=== PATIENT | male | born 1950 | race Hispanic/Latino ===

== ENCOUNTER → 2019-12-18 | Day surgery (SDC) | payer MEDICARE ==
[~2019-12-18] MED LIST: AMLODIPINE BESY10 MG PO; FENTANYL CITRATE/PF 100MCG/2 ML INJ ONE; IBUPROFEN200 MG PO; LOSARTAN POTASS25 MG; MIDAZOLAM HCL 2 MG/2 ML VIAL ONE; NOVOLIN; OMEPRAZOLE40 MG; PROPOFOL IV EMULSION 10 MG/ML 20 ML VIAL ONE
[2019-12-18 07:46] LABS: BASOPHILS # (AUTO) 0.1 (0.0-0.1); BASOPHILS % 0.6 % (0.0-1.0); EOSINOPHILS # (AUTO) 0.3 (0.0-0.4); EOSINOPHILS % 2.3 % (0.0-6.0); HEMATOCRIT 42.4 % (38.2-49.6); LYMPHOCYTES # (AUTO) 3.5 (1.0-3.2); LYMPHOCYTES % 26.3 % (18.0-39.1); MEAN CORPUSCULAR HEMOGLOBIN 29.7 pg (28-32); MEAN CORPUSCULAR HGB CONC 35.4 g/dL (31-35); MONOCYTES # (AUTO) 0.9 (0.2-0.8); MONOCYTES % 6.5 % (4.4-11.3); NEUTROPHILS # (AUTO) 8.5 (2.1-6.9); NEUTROPHILS % 63.4 % (38.7-80.0); PLATELET COUNT 390 x10e3/uL (140-360); RED BLOOD COUNT 5.05 x10e6/uL (4.3-5.7)
[2019-12-18 10:45] VITALS: BP 141/89
== END | disposition home or self-care (01) ==
LOC: OR 06:50
PROVIDERS: ATTEND Internal Medicine Gastroenterology
DX: Z12.11 Encounter for screening for malignant neoplasm of colon (principal); D12.3 Benign neoplasm of transverse colon; D12.4 Benign neoplasm of descending colon; D12.5 Benign neoplasm of sigmoid colon; K29.70 Gastritis, unspecified, without bleeding; K29.80 Duodenitis without bleeding; K57.30 Diverticulosis of large intestine without perforation or abscess without bleeding; K64.8 Other hemorrhoids; K44.9 Diaphragmatic hernia without obstruction or gangrene; E11.9 Type 2 diabetes mellitus without complications; I10 Essential (primary) hypertension; R06.02 Shortness of breath; M19.90 Unspecified osteoarthritis, unspecified site; Z01.810 Encounter for preprocedural cardiovascular examination; Z01.812 Encounter for preprocedural laboratory examination; Z11.59 Encounter for screening for other viral diseases; Z79.4 Long term (current) use of insulin; Z86.73 Personal history of transient ischemic attack (TIA), and cerebral infarction without residual deficits
CPT/HCPCS: 36415; 43239; 45380; 45385; 82948; 85025; 93005; J2250; J2704; J3010; U0002; 45378; 45384

== ENCOUNTER 2019-12-25 10:38 | Emergency (ER) | payer MEDICARE ==
[~2019-12-25] VITALS: Ht 162.6 cm; Wt 77.1 kg
[~2019-12-25 10:38] MED LIST changes: -FENTANYL CITRATE/PF 100MCG/2 ML INJ ONE; -MIDAZOLAM HCL 2 MG/2 ML VIAL ONE; -PROPOFOL IV EMULSION 10 MG/ML 20 ML VIAL ONE
--- NOTE | 2019-12-25 10:45 | Emergency Department Note ---
History of Present Illnes History of Present Illness History of Present Illness This is a 69 year old male . Historian: Patient, Family Member Arrival Mode: Car History limited by: language barrier Onset (how long ago): week(s) Past Medical/Family History Physician Review I have reviewed the patient's past medical and family history. Any updates have been documented here. Review of Systems Review of Systems Cardiovascular: Reports chest pain Respiratory: Reports dyspnea Physical Exam Related Data Allergies: Coded Allergies: No Known Allergies (Unverified , 12/12/19) Physical Exam CONSTITUTIONAL HENT EYES NECK PULMONARY Pulmonary: Present respiratory distress CARDIOVASCULAR Cardiovascular: Present heart sounds normal, Present tachycardia GASTROINTESTINAL GENITOURINARY SKIN MUSCULOSKELETAL NEUROLOGICAL PSYCHOLOGICAL Procedures 12 Lead ECG Interpretation ECG Interpretation : ECG: ECG 1 Creative Writer: Interpreted by ED physician Prior ECG tracings: reviewed Rhythm: sinus tachycardia Rate: tachycardia BPM: 107 QRS axis: normal ST segments normal: Yes T waves normal: Yes Clinical Impression: non-specific ECG Assessment & Plan Medical Decision Making MDM Diff Dx : lung ca, sepsis, CHF, pneuomia, pericardial effusion, PE Assessment & Plan Final Impression: (1) Pericardial effusion Home Meds Reported Medications [Novolin] 70,/30 No Conflict Check 12/13/19 Omeprazole (OMEPRAZOLE) 40 Mg Capsule.dr, DAILY 12/13/19 Amlodipine Besylate (AMLODIPINE BESYLATE) 10 Mg Tablet, 10 MG PO DAILY, #30 TAB 12/12/19 Losartan Potassium (LOSARTAN POTASSIUM) 25 Mg Tablet 12/12/19 Ibuprofen (IBUPROFEN) 200 Mg Capsule, 800 MG PO PRN for PRN, TAB 12/12/19 ALFA LIGHT DO Dec 25, 2019 10:45
[2019-12-25] MEDS ORDERED: ALBUTEROL/IPRATROPIUM 3 ML NEB NEB STA (10:58)
[2019-12-25 11:00] LABS: BASOPHILS % 0.4 % (0.0-1.0); EOSINOPHILS # (AUTO) 0.1 (0.0-0.4); EOSINOPHILS % 0.8 % (0.0-6.0); HEMATOCRIT 30.3 % (38.2-49.6); HEMOGLOBIN 10.7 g/dL (14.0-18.0); LYMPHOCYTES % 19.5 % (18.0-39.1); MEAN CORPUSCULAR HEMOGLOBIN 29.6 pg (28-32); MEAN CORPUSCULAR HGB CONC 35.3 g/dL (31-35); MEAN CORPUSCULAR VOLUME 83.7 fL (81-99); MONOCYTES % 10.2 % (4.4-11.3); NEUTROPHILS # (AUTO) 6.8 (2.1-6.9); NEUTROPHILS % 67.6 % (38.7-80.0); PLATELET COUNT 312 x10e3/uL (140-360); RED BLOOD COUNT 3.62 x10e6/uL (4.3-5.7); RED CELL DISTRIBUTION WIDTH 14.6 % (11.7-14.4)
--- NOTE | 2019-12-25 11:10 | NUR ---
Chest x-ray performed in room.
[2019-12-25 11:13] LABS: INR 1.09; PROTHROMBIN TIME 14.7 seconds (11.9-14.5)
--- NOTE | 2019-12-25 11:17 | Diagnostic Imaging Report ---
TECHNIQUE: Frontal view of the chest. INDICATION: ^ERMD ORDER ^Y COMPARISON: None. IMPRESSION: Lines and hardware: None. Heart and mediastinum: Prominent cardiomediastinal shadow may be due to cardiomegaly or magnification Lungs and pleura: Pulmonary vascular congestion with bibasilar atelectasis. No focal airspace consolidation. Small bilateral pleural effusions. No pneumothorax. Soft tissues and bones: No acute abnormality. Signed by: Donald Han MD on 12/25/2019 11:13 AM
--- OUTSIDE RECORDS SUMMARY | 2019-12-25 11:20 | XMS REPORT | Continuity of Care Document ---
Author Author [facility] t Organization [facility] Address [address] [place] [address] Phone Unavailable Care Team Providers Care Paddock Judge Name Role Phone ALFA LIGHT Attphys Unavailable Franco, Karon Attphys Unavailable Swathi Fishman Attphys Status, Fax Attphys Unavailable Gilbert, Delmis Attphys Unavailable PushpaChong Attphys Brenda Stroud Attphys Unavailable Pam, Alexia Attphys Unavailable Earnest, FaQuazia Attphys Unavailable Swathi Fishman Unavailable PushpaChong Unavailable Payers Payer Name Policy Type Policy Number Effective Date Expiration Date S ource Problems Condition Name Condition Details Condition Category Status Onset Date Resolution Date Last Treatment Date Treating Clinician Comments Source Chronic back pain Condition Active 2019-11-16 00:00:00 2019-11-17 11:13:50 Swathi Fishman [facility] Special screening examination for other specified viral diseases Condition Active 2019-11-16 00:00:00 2019-11-16 15:09:57 Swathi Fishman [facility] Hernia, inguinal Condition Active 2017-07-26 00:00:00 2 15:08:16 Maddy Barrow right [facility] Diabetes mellitus type II, controlled Condition Active 20 22-07-21 00:00:00 2019-11-16 15:08:16 Maddy Barrow [facility] Allergies, Adverse Reactions, Alerts Allergy Name Allergy Type Status Severity Reaction(s) Onset Date Inacti ve Date Treating Clinician Comments Source No Allergy Information Available DA Active U 2019-11-15 0 0:00:00 [facility] No Known Allergies DA Active U 2019-11-15 00:00:00 [facility] No Known Allergies DA Active U 2019-01-28 00:00:00 [facility] No Known Allergies DA Active U 2019-01-27 00:00:00 [facility] No Known Allergies DA Active U 2014-05-27 00:00:00 [facility] Social History Social Habit Start Date Stop Date Quantity Comments Source sex at 2017-07-26 13:00:40 2017-07-26 13:00:40 Male [facility] patient considered to be homeless 2017-07-26 13:00:40 2017-07-26 13:0 0:40 No [facility] drug use, illicit 2017-07-26 13:00:40 2017-07-26 13:00:40 Never [facility] alcohol use 2017-07-26 13:00:40 2017-07-26 13:00:40 Never [facility] social history reviewed E&M 2017-07-26 13:00:40 2017-07-26 13:00 :40 reviewed today [facility] sexual orientation 2017-07-26 13:00:40 2017-07-26 13:00:40 Heterosexu al [facility] is there any chance that you could be ? 2017-07-26 1 3:00:40 2017-07-26 13:00:40 No [facility] passive cigarette smoke exposure 2017-07-26 13:00:40 2017-07-26 13:00 :40 No [facility] Smoking Status Start Date Stop Date Source Ex-smoker (finding) 2017-07-26 13:00:40 2017-07-26 13:00:40 [facility] Medications Ordered Medication Name Filled Medication Name Start Date Stop Da te Current Medication? Ordering Clinician Indication Dosage Frequency Signature (SIG) Comments Components Source ACETAMINOPHEN-CODEINE #3 (ACETAMINOPHEN-CODEINE) 300-30 MG T ABS 2019-11-16 00:00:00 Yes Swathi Fishman 1{Tablet} 3xD ta ke 1 tab every 8 hrs as needed for pain. [facility] (ASPIRIN) 81 MG TBE 2017-07-26 00:00:00 Yes Maddy Schwarz Ir a 1 by mouth every day [facility] NOVOLIN 70/30 (INSULIN NPH ISOPHANE & REGULAR) (70-30) 100 U NIT/ML SUSP 2017-07-26 00:00:00 Yes Maddy Schwarz Pushpa 30 sc i n am and 20 units sc qpm [facility] Vital Signs Vital Name Observation Time Observation Value Comments Source oxygen saturation, oximetry 2017-07-26 13:00:40 96 % [facility] blood pressure, diastolic 2017-07-26 13:00:40 82 mm[Hg] [facility] blood pressure, systolic 2017-07-26 13:00:40 153 mm[Hg] [facility] pulse rate 2017-07-26 13:00:40 91 /min formerly [facility] temperature E&M 2017-07-26 13:00:40 98.7 [degF] [facility] height in centimeters E&M 2017-07-26 13:00:40 157.48 cm [facility] weight E&M 2017-07-26 13:00:40 161.50 [lb_av] [facility] weight in kilograms E&M 2017-07-26 13:00:40 73.41 kg [facility] temperature site 2017-07-26 13:00:40 oral [facility] Procedures This patient has no known procedures. Encounters Start Date/Time End Date/Time Encounter Type Admission Type [facility] Care Facility Care Department Encounter ID Source 2019-11-22 00:00:00 2019-11-22 00:00:00 Office Visit Karon Daniel [facility] Encounter/[id number] [facility] 2019-11-19 00:00:00 2019-11-19 00:00:00 Office Visit Swathi [facility] Encounter/[id number] [facility] 2019-11-16 00:00:00 2019-11-16 00:00:00 Office Visit Swathi France [facility] Encounter/[id number] [facility] 2018-10-10 00:00:00 2018-10-10 00:00:00 Office Visit Status, Fax [facility] Encounter/[id number] [facility] 2018-06-28 00:00:00 2018-06-28 00:00:00 Office Visit Status, Fax [facility] Encounter/[id number] [facility] 2018-06-13 00:00:00 2018-06-13 00:00:00 Office Visit Kar Hunt [facility] Encounter/[id number] [facility] 2017-07-26 00:00:00 2017-07-26 00:00:00 Office Visit Status, Fax [facility] Encounter/[id number] [facility] 2017-07-26 00:00:00 2017-07-26 00:00:00 Office Visit Status, Fax [facility] Encounter/[id number] [facility] 2017-07-26 00:00:00 2017-07-26 00:00:00 Office Visit Status, Fax [facility] Encounter/[id number] [facility] 2017-07-26 00:00:00 2017-07-26 00:00:00 Office Visit Status, Fax [facility] Encounter/[id number] [facility] 2017-07-26 00:00:00 2017-07-26 00:00:00 Office Visit Status, Fax [facility] Encounter/[id number] [facility] 2017-07-26 00:00:00 2017-07-26 00:00:00 Office Visit Maddy Barrow [facility] Encounter/[id number] [facility] 2017-07-26 00:00:00 2017-07-26 00:00:00 Office Visit Maddy Merchant ra, Brenda Orozco, Jael TinocoTacos Shaniqua [facility] Encounter/[id number] [place] [facility] Results Test Description Test Time Test Comments Results Result Comments Source CHEST SINGLE (PORTABLE) 2019-12-25 11:12:[address] [facility] 1950 Sex: M [place] [address] Patient Name: KERI CHIANG MR #: [id number] : 1950 Age/Sex: 69/M Req #: [id number] Adm Physician: Ordered by: ALFA LIGHT DO Report #: [id number] Location: ER Room/Bed: Procedure: [id number] DX/CHEST SINGLE (PORTABLE) Exam Date: Exam Time: REPORT STATUS: Signed TECHNIQUE: Frontal view of the chest. INDICATION: ERMD ORDER Y COMPARISON: None. IMPRESSION: Lines and hardware: None. Heart and mediastinum: Prominent cardiomediastinal shadow may be due to cardiomegaly or magnification Lungs and pleura: Pulmonary vascular congestion with bibasilar atelectasis. No focal airspace consolidation. Small bilateral pleural effusions. No pneumothorax. Soft tissues and bones: No acute abnormality. Signed by: Donald Trinh MD on 12/25/2019 11:13 AM Dictated By: DONALD TRINH DO 12 Transcribed By: MITRA on 12/25/191112 COPY TO: ALFA LIGHT DO 2019NCoV (COVID-19) SARS coronavirus 2 R NA (Presence) in Respiratory specimen by THIERNO with probe detection (Other Lab) 2019-11-19 19:56:00 Test Item 2019NCoV (COVID-19) SARS coronavirus 2 R NA (Presence) in Respiratory specimen by THIERNO with probe detection (Other Lab) (test code = 41129-1) Not Detected [facility] Test Item Value Reference Range Interpretation Comments CALCITONIN (test code = CALC) 2.7 pg/mL 0.0-8.4 Siemens Immulite 2000 Immunochemiluminometric assay (ICMA)Values obtained with different assay methods or kits cannotbe used interchangeably. Results cannot be interpreted asabsolute evidence of the presence or absence of malignantdisease.Performed At: [address] [id number] Coburn MD Ph:[phone] [id number] 07:20:00* Test Item Value Reference Range Interpretation Comments GLUBED (test code = GLUBED) 80 mg/dL 74-106 N Performed by certified foundation drill operator helper at [facility] COMPREHENSIVE METABOLIC [id number] 05:37:00* Test Item Value Reference Range Interpretation Comments SODIUM (test code = NA) 142 mmol/L 136-145 N POTASSIUM (test code = K) 4.2 mmol/L 3.5-5.1 N CHLORIDE (test code = CL) 109.0 mmol/L 98-107 H CARBON DIOXIDE (test code = CO2) 24.0 mmol/L 21-32 N ANION GAP (test code = GAP) 13.2 10-20 N GLUCOSE (test code = GLU) 96 mg/dL 74-106 N BLOOD UREA NITROGEN (test code = BUN) 9 mg/dL 7-18 N GLOMERULAR FILTRATION RATE (test code = GFR) > 60 mL/min >=60 Estimated GFR by using Modified MDRD formula.Chronic kidney disease is defined as either kidney damageor GFR <60 mL/min/1.73 m2 for >3 months. CREATININE (test code = CREAT) 0.70 mg/dL 0.7-1.3 N BUN/CREATININE RATIO (test code = BUN/CREA) 12.8 10-20 N TOTAL PROTEIN (test code = PROT) 6.1 gram/dL 6.4-8.2 L ALBUMIN (test code = ALB) 2.7 g/dL 3.4-5.0 L GLOBULIN (test code = GLOB) 3.4 gram/dL 2.7-4.2 N ALBUMIN/GLOBULIN RATIO (test code = A/G) 0.8 0.75-1.50 N CALCIUM (test code = CA) 8.3 mg/dL 8.5-10.1 L BILIRUBIN TOTAL (test code = BILT) 0.90 mg/dL 0.0-1.0 N SGOT/AST (test code = AST) 25 IUnit/L 15-37 N SGPT/ALT (test code = ALT) 31 IUnit/L 12-78 N ALKALINE PHOSPHATASE TOTAL (test code = ALKP) 95 IUnit/L 45-117 N Note change in reference range due to change in reagent. COMPREHENSIVE METABOLIC [id number] 05:35:00* Test Item Value Reference Range Interpretation Comments SODIUM (test code = NA) 142 mmol/L 136-145 N POTASSIUM (test code = K) 4.2 mmol/L 3.5-5.1 N CHLORIDE (test code = CL) 109.0 mmol/L 98-107 H CARBON DIOXIDE (test code = CO2) mmol/L 21-32 ANION GAP (test code = GAP) 10-20 GLUCOSE (test code = GLU) mg/dL 74-106 BLOOD UREA NITROGEN (test code = BUN) mg/dL 7-18 GLOMERULAR FILTRATION RATE (test code = GFR) mL/min >=60 CREATININE (test code = CREAT) mg/dL 0.7-1.3 BUN/CREATININE RATIO (test code = BUN/CREA) 10-20 TOTAL PROTEIN (test code = PROT) gram/dL 6.4-8.2 ALBUMIN (test code = ALB) g/dL 3.4-5.0 GLOBULIN (test code = GLOB) gram/dL 2.7-4.2 ALBUMIN/GLOBULIN RATIO (test code = A/G) 0.75-1.50 CALCIUM (test code = CA) mg/dL 8.5-10.1 BILIRUBIN TOTAL (test code = BILT) mg/dL 0.0-1.0 SGOT/AST (test code = AST) IUnit/L 15-37 SGPT/ALT (test code = ALT) IUnit/L 12-78 ALKALINE PHOSPHATASE TOTAL (test code = ALKP) IUnit/L 45-117 CBC W/AUTO [id number] 05:06:00* Test Item Value Reference Range Interpretation Comments WHITE BLOOD CELL (test code = WBC) 8.5 K/mm3 4.5-12.5 N RED BLOOD CELL (test code = RBC) 4.30 mill/mm3 4.0-5.8 N HEMOGLOBIN (test code = HGB) 13.2 gram/dL 13.0-17.5 N HEMATOCRIT (test code = HCT) 37.1 % 42.0-52.0 L MEAN CELL VOLUME (test code = MCV) 86.3 fL 80-98 N MEAN CELL HGB (test code = MCH) 30.7 picogram 27.0-33.0 N MEAN CELL HGB CONCETRATION (test code = MCHC) 35.6 gram/dL 33.0-36. 0 N RED CELL DISTRIBUTION WIDTH (test code = RDW) 13.7 % 11.6-16. 2 N RED CELL DISTRIBUTION WIDTH SD (test code = RDW-SD) 42.7 fL 37 .0-51.0 N PLATELET COUNT (test code = PLT) 353 K/mm3 150-450 N MEAN PLATELET VOLUME (test code = MPV) 10.2 fL 6.7-11.0 N NEUTROPHIL % (test code = NT%) 70.9 % 39.0-69.0 H IMMATURE GRANULOCYTE % (test code = IG%) 0.8 % 0.0-5.0 N LYMPHOCYTE % (test code = LY%) 17.8 % 25.0-55.0 L MONOCYTE % (test code = MO%) 8.6 % 0.0-10.0 N EOSINOPHIL % (test code = EO%) 1.4 % 0.0-5.0 N BASOPHIL % (test code = BA%) 0.5 % 0.0-1.0 N NUCLEATED RBC % (test code = NRBC%) 0.0 % 0-0 N NEUTROPHIL # (test code = NT#) 6.02 K/mm3 1.8-7.7 N IMMATURE GRANULOCYTE # (test code = IG#) 0.07 x10 3/uL 0-0.03 H LYMPHOCYTE # (test code = LY#) 1.51 K/mm3 1.0-5.0 N MONOCYTE # (test code = MO#) 0.73 K/mm3 0-0.8 N EOSINOPHIL # (test code = EO#) 0.12 K/mm3 0.0-0.5 N BASOPHIL # (test code = BA#) 0.04 K/mm3 0.0-0.2 N NUCLEATED RBC # (test code = NRBC#) 0.00 K/mm3 0.0-0.1 N MANUAL DIFF REQUIRED (test code = MDIFF) NO COVID 19 INHOUSE [id number] 02:33:00* Test Item Value Reference Range Interpretation Comments COVID 19 INHOUSE AG (test code = [id number]) NEGATIVE COVID 19 INHOUSE [id number] 00:16:00* Test Item Value Reference Range Interpretation Comments COVID 19 INHOUSE AG (test code = [id number]) POSITIVE PATIENT UNDER INVESTIGATION FOR [id number] 20:19:00* Test Item Value Reference Range Interpretation Comments GLUBED (test code = GLUBED) 141 mg/dL 74-106 H Performed by certified foundation drill operator helper at [facility] [id number] 17:19:00* Test Item Value Reference Range Interpretation Comments GLUBED (test code = GLUBED) 141 mg/dL 74-106 H Performed by certified foundation drill operator helper at [facility] LACTIC [id number] 17:12:00* Test Item Value Reference Range Interpretation Comments LACTIC ACID (test code = LACT) 1.1 mmol/L 0.4-1.9 N URINALYSIS [id number] 04:25:00* Test Item Value Reference Range Interpretation Comments UA COLOR (test code = COLU) YELLOW YELLOW UA APPEARANCE (test code = APPU) CLEAR CLEAR UA GLUCOSE DIPSTICK (test code = DGLUU) 500 (3+) mg/dL NEGATIVE A UA BILIRUBIN DIPSTICK (test code = BILU) NEGATIVE mg/dL NEGATIVE UA KETONE DIPSTICK (test code = KETU) NEGATIVE mg/dL NEGATIVE UA SPECIFIC GRAVITY (test code = SGU) 1.024 1.001-1.035 UA BLOOD DIPSTICK (test code = FELI) 0.06 mg/dL (1+) mg/dL NEGATIVE A UA PH DIPSTICK (test code = THERESE) 6.0 5.0-8.0 UA PROTEIN DIPSTICK (test code = PROU) 100 (2+) mg/dL NEGATIVE A UA UROBILINIOGEN DIPSTICK (test code = URO) 2.0 (1+) mg/dL NEGATIVE A UA NITRITE DIPSTICK (test code = PABLO) NEGATIVE NEGATIVE UA LEUKOCYTE ESTERASE W REFLEX (test code = LEUUR) NEGATIVE Arnoldo/uL NEGATIVE UA WBC (test code = WBCU) 0-5 per HPF 0-5 UA RBC (test code = RBCU) 6-10 #/HPF 0-5 A UA EPITHELIAL CELLS (test code = EPIU) FEW per HPF FEW UA BACTERIA (test code = BACU) FEW #/HPF NONE A UA MUCUS (test code = MUCU) FEW #/LPF FEW Urine Source? Clean Catch- CT ABD PELVIS W/O [id number] 02:40:00 Name: KERI CHEN [facility] : 1950 Age/S: 69 / M [address] Unit #: [id number] Loc: [place] [address] Phys: Angela Parker DO Acct: [id number] Di s Date: Status: REG ER PHONE #: Exam Date: 11/15/2019 0210 FAX #: Reason: flank pain, r/o kidney stone EXAMS: CPT CODE: [id number] CT ABD PELVIS W/O CONT 80966 CT abdomen and pelvis wit hout IV contrast. Indication: Flank pain, rule out kidney stone Location: R16 Comparison: None available Technique: CT images of the abdomen and pelvis were obtained from the ava phragm to the pubic symphysis without the administration of intravenous co ntrast contrast. Coronal reformats are provided. One or more of th e following dose reduction techniques were used: Automated exposure contro l, adjustment of the mA and/or kV according to patient size, and/or utiliz ation of iterative reconstruction technique. Findings: Lungs bases: Unremarkable. Liver: Noncontrast appearance is unremarkable. Gallbladder: Surgically absent Pancreas: Noncontras t appearance is unremarkable. Spleen: Noncontrast appearance is unremarkab le. Adrenal glands: Noncontrast appearance is unremarkable. Kidneys: Nonspecific bilateral renal induration is seen possibly reflecting chroni c renal insufficiency ascending urinary tract infection. Bladder wall thi ckening is seen possibly reflecting cystitis.. Bowel: No bowel obstr uction. The appendix is unremarkable. Peritoneum: No ascites. No free ai r Skeletal: No acute fracture.. Impression: Nonspecific bilateral renal induration is se en possibly reflecting chronic renal insufficiency ascending urinary tra ct infection. Bladder wall thickening is seen possibly reflecting cysti tis.. Additional findings as detailed above PAGE 1 Signed Report (CONTINUED) Name: KERI CHEN [facility] : 1950 Age/S: 69 / M [address] [employer] Unit #: [id number] Loc: [place] [address] Phys: Mita Parker DO Acct: [id number] Dis Date: Status : REG ER PHONE #: [phone] Exam Date: 0 11/15/2019209 FAX #: [phone] Reason: flank pain, r/o kidney stone EXAMS: CPT CODE: [id number] CT ABD PELVIS W/O CONT 11977 <Continued> at 0240 Reported and signed by: Merissa Faye M.D. CC: Mita Parker DO Technologist:NIKHIL BAILEY, RT CTDI: DLP: Trnscb Date/Time: 11/15/2019 (239) [email or web address] Orig Print D/T: S: 11/15/2019 (242) PAGE 2 Signed Report - CT ABD PELVIS W/O [id number] 02:40:00 Name: SARINA CHENARDO [facility] : 1950 Age/S: 69 / M [address] Unit #: [id number] Loc: [place] [address] Phys: Angela Parker DO Acct: [id number] Di s Date: 11/16/2019 Status: DIS IN PHONE #: Exam Date: 11/15/2019209 FAX #: [phone] Reason: flank pain, r/o kidney stone EXAMS: CPT CODE: [id number] CT ABD PELVIS W/O CONT 96984 CT abdomen and pelvis wit hout IV contrast. Indication: Flank pain, rule out kidney stone Location: R16 Comparison: None available Technique: CT images of the abdomen and pelvis were obtained from the ava phragm to the pubic symphysis without the administration of intravenous co ntrast contrast. Coronal reformats are provided. One or more of th e following dose reduction techniques were used: Automated exposure contro l, adjustment of the mA and/or kV according to patient size, and/or utiliz ation of iterative reconstruction technique. Findings: Lungs bases: Unremarkable. Liver: Noncontrast appearance is unremarkable. Gallbladder: Surgically absent Pancreas: Noncontras t appearance is unremarkable. Spleen: Noncontrast appearance is unremarkab le. Adrenal glands: Noncontrast appearance is unremarkable. Kidneys: Nonspecific bilateral renal induration is seen possibly reflecting chroni c renal insufficiency ascending urinary tract infection. Bladder wall thi ckening is seen possibly reflecting cystitis.. Bowel: No bowel obstr uction. The appendix is unremarkable. Peritoneum: No ascites. No free ai r Skeletal: No acute fracture.. Impression: Nonspecific bilateral renal induration is se en possibly reflecting chronic renal insufficiency ascending urinary tra ct infection. Bladder wall thickening is seen possibly reflecting cysti tis.. Additional findings as detailed above PAGE 1 Signed Report (CONTINUED) Name: KERI CHEN [facility] : 1950 Age/S: 69 / M [address] Unit #: [id number] Loc: [place] [address] Phys: Mita Parker DO Acct: [id number] Dis Date: 11/16/2019 Status : DIS IN PHONE #: [phone] Exam Date: 11/15/2019209 FAX #: [phone] Reason: flank pain, r/o kidney stone EXAMS: CPT CODE: [id number] CT ABD PELVIS W/O CONT 84839 <Continued> at 0240 Reported and signed by: Merissa Faye M.D. CC: Mita Parker DO Technologist:NIKHIL BAILEY, RT CTDI: DLP: Trnscb Date/Time: 11/15/2019 (239) [email or web address] Orig Print D/T: S: 11/15/2019 (0243) PAGE 2 Signed Report BASIC METABOLIC [id number] 02:28:00* Test Item Value Reference Range Interpretation Comments SODIUM (test code = NA) 141 mmol/L 136-145 N POTASSIUM (test code = K) 3.4 mmol/L 3.5-5.1 L CHLORIDE (test code = CL) 107.0 mmol/L 98-107 N CARBON DIOXIDE (test code = CO2) 25.0 mmol/L 21-32 N ANION GAP (test code = GAP) 12.4 10-20 N GLUCOSE (test code = GLU) 215 mg/dL 74-106 H BLOOD UREA NITROGEN (test code = BUN) 13 mg/dL 7-18 N GLOMERULAR FILTRATION RATE (test code = GFR) > 60 mL/min >=60 Estimated GFR by using Modified MDRD formula.Chronic kidney disease is defined as either kidney damageor GFR <60 mL/min/1.73 m2 for >3 months. CREATININE (test code = CREAT) 1.00 mg/dL 0.7-1.3 N BUN/CREATININE RATIO (test code = BUN/CREA) 13.4 10-20 N CALCIUM (test code = CA) 8.6 mg/dL 8.5-10.1 N HEPATIC FUNCTION [id number] 02:28:00* Test Item Value Reference Range Interpretation Comments TOTAL PROTEIN (test code = PROT) 6.5 gram/dL 6.4-8.2 N ALBUMIN (test code = ALB) 2.6 g/dL 3.4-5.0 L GLOBULIN (test code = GLOB) 3.9 gram/dL 2.7-4.2 N ALBUMIN/GLOBULIN RATIO (test code = A/G) 0.7 0.75-1.50 L BILIRUBIN TOTAL (test code = BILT) 0.60 mg/dL 0.0-1.0 N BILIRUBIN DIRECT (test code = BILD) 0.17 mg/dL 0.0-0.20 N SGOT/AST (test code = AST) 19 IUnit/L 15-37 N SGPT/ALT (test code = ALT) 24 IUnit/L 12-78 N ALKALINE PHOSPHATASE TOTAL (test code = ALKP) 91 IUnit/L 45-117 N Note change in reference range due to change in reagent. [id number] 02:28:00* Test Item Value Reference Range Interpretation Comments LIPASE (test code = LIP) 84 U/L 73.0-393.0 N [id number] 02:28:00* Test Item Value Reference Range Interpretation Comments TROPONIN-I (test code = TROPI) <0.015 ng/mL 0-0.045 N CBC W/O [id number] 02:01:00* Test Item Value Reference Range Interpretation Comments WHITE BLOOD CELL (test code = WBC) 7.6 K/mm3 4.5-12.5 N RED BLOOD CELL (test code = RBC) 4.38 mill/mm3 4.0-5.8 N HEMOGLOBIN (test code = HGB) 13.4 gram/dL 13.0-17.5 N HEMATOCRIT (test code = HCT) 36.8 % 42.0-52.0 L MEAN CELL VOLUME (test code = MCV) 84.0 fL 80-98 N MEAN CELL HGB (test code = MCH) 30.6 picogram 27.0-33.0 N MEAN CELL HGB CONCETRATION (test code = MCHC) 36.4 gram/dL 33.0-36. 0 H RED CELL DISTRIBUTION WIDTH (test code = RDW) 13.7 % 11.6-16. 2 N PLATELET COUNT (test code = PLT) 333 K/mm3 150-450 N MEAN PLATELET VOLUME (test code = MPV) 9.9 fL 6.7-11.0 N BASIC METABOLIC [id number] 02:01:00* Test Item Value Reference Range Interpretation Comments SODIUM (test code = NA) 141 mmol/L 136-145 N POTASSIUM (test code = K) 3.4 mmol/L 3.5-5.1 L CHLORIDE (test code = CL) 107.0 mmol/L 98-107 N CARBON DIOXIDE (test code = CO2) mmol/L 21-32 ANION GAP (test code = GAP) 10-20 GLUCOSE (test code = GLU) mg/dL 74-106 BLOOD UREA NITROGEN (test code = BUN) mg/dL 7-18 GLOMERULAR FILTRATION RATE (test code = GFR) mL/min >=60 CREATININE (test code = CREAT) mg/dL 0.7-1.3 BUN/CREATININE RATIO (test code = BUN/CREA) 10-20 CALCIUM (test code = CA) mg/dL 8.5-10.1 HEPATIC FUNCTION [id number] 02:01:00* Test Item Value Reference Range Interpretation Comments TOTAL PROTEIN (test code = PROT) gram/dL 6.4-8.2 ALBUMIN (test code = ALB) g/dL 3.4-5.0 GLOBULIN (test code = GLOB) gram/dL 2.7-4.2 ALBUMIN/GLOBULIN RATIO (test code = A/G) 0.75-1.50 BILIRUBIN TOTAL (test code = BILT) mg/dL 0.0-1.0 BILIRUBIN DIRECT (test code = BILD) mg/dL 0.0-0.20 SGOT/AST (test code = AST) IUnit/L 15-37 SGPT/ALT (test code = ALT) IUnit/L 12-78 ALKALINE PHOSPHATASE TOTAL (test code = ALKP) IUnit/L 45-117 [id number] 02:01:00* Test Item Value Reference Range Interpretation Comments LIPASE (test code = LIP) U/L 73.0-393.0 [id number] 02:01:00* Test Item Value Reference Range Interpretation Comments TROPONIN-I (test code = TROPI) ng/mL 0-0.045 [id number] 23:15:00* Test Item Value Reference Range Interpretation Comments GLUBED (test code = GLUBED) 231 mg/dL 74-106 H Performed by certified foundation drill operator helper at [facility] [id number] 17:53:00* Test Item Value Reference Range Interpretation Comments GLUBED (test code = GLUBED) 199 mg/dL 74-106 H Performed by certified foundation drill operator helper at [facility] [id number] 16:26:00* Test Item Value Reference Range Interpretation Comments GLUBED (test code = GLUBED) 232 mg/dL 74-106 H Performed by certified foundation drill operator helper at [facility] [id number] 12:12:00* Test Item Value Reference Range Interpretation Comments GLUBED (test code = GLUBED) 146 mg/dL 74-106 H Performed by certified foundation drill operator helper at [facility] [id number] 08:05:00* Test Item Value Reference Range Interpretation Comments GLUBED (test code = GLUBED) 133 mg/dL 74-106 H Performed by certified foundation drill operator helper at [facility] LIPID PROFILE (CORONARY RISK)2019-01-29 07:47:00* Test Item Value Reference Range Interpretation Comments TRIGLYCERIDES (test code = TRIG) 133 mg/dL 20-150 N CHOLESTEROL (test code = CHOL) 120 mg/dL 0-200 N CHOLESTEROL/HDL RATIO (test code = CHOLHDL) 3.0 RATIO 0-4.9 N RISK ASSOCIATED WITH CHOL/HDL RATIOS: Risk Male Female1/2 AVERAGE 3.43 3.27AVERAGE 4.97 4.442X AVERAGE 9.55 7.053X AVERAGE 23.39 11.04 REFERENCE VALUE IS RELATED TO RISK LEVELS ASRECOMMENDED BY THE [facility]. HEART, LUNG, AND BLOOD INST. HDL CHOLESTEROL (test code = HDL) 36 mg/dL 40-60 L LIPOPROTEIN LDL (test code = LDL) 76 mg/dL 100-129 L Reference Interval: mg/dL mmol/L Optimal <100 <2.6Near/above optimal 100-129 2.6- 3.3Borderline High 130-159 3.4-4.1High 160-189 4.1-4.9Very High >=190 >=4.9========= This LDL result is a direct measurement.========= [id number] 07:31:00* Test Item Value Reference Range Interpretation Comments GLYCOSYLATED HEMOGLOBIN (HA1C) (test code = GLYHGB) 6.9 % HbA1 SUGGESTED DIAGNOSIS: HbA1C (%) Diabetic >6.4Prediabetes 5.7 - 6.4Normal <5.7 ESTIMATED AVERAGE GLUCOSE (test code = EAG) 151 MG/DL BASIC METABOLIC [id number] 07:22:00* Test Item Value Reference Range Interpretation Comments SODIUM (test code = NA) 140 mmol/L 136-145 N POTASSIUM (test code = K) 4.1 mmol/L 3.5-5.1 N CHLORIDE (test code = CL) 110.0 mmol/L 98-107 H CARBON DIOXIDE (test code = CO2) 23.0 mmol/L 21-32 N ANION GAP (test code = GAP) 11.1 10-20 N GLUCOSE (test code = GLU) 138 mg/dL 74-106 H BLOOD UREA NITROGEN (test code = BUN) 10 mg/dL 7-18 N GLOMERULAR FILTRATION RATE (test code = GFR) > 60 mL/min >=60 Estimated GFR by using Modified MDRD formula.Chronic kidney disease is defined as either kidney damageor GFR <60 mL/min/1.73 m2 for >3 months. CREATININE (test code = CREAT) 0.90 mg/dL 0.7-1.3 N BUN/CREATININE RATIO (test code = BUN/CREA) 11.4 10-20 N CALCIUM (test code = CA) 8.4 mg/dL 8.5-10.1 L BASIC METABOLIC [id number] 07:13:00* Test Item Value Reference Range Interpretation Comments SODIUM (test code = NA) 140 mmol/L 136-145 N POTASSIUM (test code = K) 4.1 mmol/L 3.5-5.1 N CHLORIDE (test code = CL) 110.0 mmol/L 98-107 H CARBON DIOXIDE (test code = CO2) mmol/L 21-32 ANION GAP (test code = GAP) 10-20 GLUCOSE (test code = GLU) mg/dL 74-106 BLOOD UREA NITROGEN (test code = BUN) mg/dL 7-18 GLOMERULAR FILTRATION RATE (test code = GFR) mL/min >=60 CREATININE (test code = CREAT) mg/dL 0.7-1.3 BUN/CREATININE RATIO (test code = BUN/CREA) 10-20 CALCIUM (test code = CA) mg/dL 8.5-10.1 CBC W/AUTO [id number] 06:51:00* Test Item Value Reference Range Interpretation Comments WHITE BLOOD CELL (test code = WBC) 7.4 K/mm3 4.5-12.5 N RED BLOOD CELL (test code = RBC) 4.59 mill/mm3 4.0-5.8 N HEMOGLOBIN (test code = HGB) 14.5 gram/dL 13.0-17.5 N HEMATOCRIT (test code = HCT) 39.1 % 42.0-52.0 L MEAN CELL VOLUME (test code = MCV) 85.2 fL 80-98 N MEAN CELL HGB (test code = MCH) 31.6 picogram 27.0-33.0 N MEAN CELL HGB CONCETRATION (test code = MCHC) 37.1 gram/dL 33.0-36. 0 H RED CELL DISTRIBUTION WIDTH (test code = RDW) 13.5 % 11.6-16. 2 N RED CELL DISTRIBUTION WIDTH SD (test code = RDW-SD) 42.1 fL 37 .0-51.0 N PLATELET COUNT (test code = PLT) 209 K/mm3 150-450 N MEAN PLATELET VOLUME (test code = MPV) 10.6 fL 6.7-11.0 N NEUTROPHIL % (test code = NT%) 59.5 % 39.0-69.0 N IMMATURE GRANULOCYTE % (test code = IG%) 0.8 % 0.0-5.0 N LYMPHOCYTE % (test code = LY%) 25.8 % 25.0-55.0 N MONOCYTE % (test code = MO%) 13.8 % 0.0-10.0 H EOSINOPHIL % (test code = EO%) 0.0 % 0.0-5.0 N BASOPHIL % (test code = BA%) 0.1 % 0.0-1.0 N NUCLEATED RBC % (test code = NRBC%) 0.0 % 0-0 N NEUTROPHIL # (test code = NT#) 4.39 K/mm3 1.8-7.7 N IMMATURE GRANULOCYTE # (test code = IG#) 0.06 x10 3/uL 0-0.03 H LYMPHOCYTE # (test code = LY#) 1.91 K/mm3 1.0-5.0 N MONOCYTE # (test code = MO#) 1.02 K/mm3 0-0.8 H EOSINOPHIL # (test code = EO#) 0.00 K/mm3 0.0-0.5 N BASOPHIL # (test code = BA#) 0.01 K/mm3 0.0-0.2 N NUCLEATED RBC # (test code = NRBC#) 0.00 K/mm3 0.0-0.1 N MANUAL DIFF REQUIRED (test code = MDIFF) NO [id number] 20:32:00* Test Item Value Reference Range Interpretation Comments GLUBED (test code = GLUBED) 206 mg/dL 74-106 H Performed by certified foundation drill operator helper at [facility] - CT ABD PELVIS W WO [id number] 18:29:00 Name: KERI CHIANG [facility] : 1950 Age/S: 68 / [facility] [address] [facility] Unit #: [id number] Loc: [place] [address] Phys: Will Light MD Acct: [id number] Dis Date: Status: ADM IN PHONE #: [phone] Exam Date: 01/28/2019 1800 FAX #: [phone] Reason: CP/FEVER/HEMATURIA EXAMS: CPT CODE: [id number] CT ABD PELVIS W WO CONT 02761 EXAM: CT of the abdomen and pelvis with and without contrast; INFORMATION: Fever, hematuria; TECHNIQUE AND FINDINGS: CT dose reduction protocol; 5 mm cuts through the abdomen and pelvis before, during and after intravenous infusion of contrast material. The liver is of normal size and shape; no focal lesions. Homogeneous parenchymal enhancement. Status post dylan cystectomy; no biliary dilatation. The pancreas shows several puncta te calcifications; no ductal dilatation and no focal lesions. The sp michael is of normal size and shape. It shows several small poorly defined h ypodense lesions. Adrenal glands are unremarkable. The kidneys are o f normal size and shape. There is normal parenchymal enhancement of the k idneys; no focal lesions. The noncontrast study shows no evidence of renal or ureteral stones. No hydronephrosis. There is mild stranding of p erinephric tissues bilaterally. The urinary bladder is unremarkable. No pelvic mass lesions. No acute bowel abnormalities. IMP RESSION: 1. No evidence of renal or ureteral stones or of obstructive uropathy. 2. No renal mass lesions or other renal abnormalities. Mild stranding of perirenal tissues may be due to prior inflammatory changes. 3. Small focal splenic lesions of unclear significance. In this regard I recommend a follow-up study in 3-4 months. Location code: at 1829 Reported and signed by: Nishant Guardado M.D. PAGE 1 Signed Report (CONTINUED) Name: KERI SALDANA [facility] : 0 Age/S: 68 / M [address] [facility] Unit #: [id number] Loc: [place] [address] Phys: Will Light MD Acct: [id number] Dis Date: Status: ADM IN PHONE #: [phone] Exam Date: 01/28/2019 1800 FAX #: [phone] Re ason: CP/FEVER/HEMATURIA EXAMS: CPT CODE: [id number] CT ABD PELVIS W WO CONT 03805 <Continued> CC: Will Light Technologist:Dolores Varela RT(R)(CT) CTDI: DLP: Trnscb Date/Time: 01/28/2019 (1828) t.GRW Orig Print D/T: S: 01/28/2019 (183) PAGE 2 Signed Report - CT CHEST W/O [id number] 18:09:00 Name: KERI JOYA [facility] : 1950 Age/S: 68 / M [address] Unit #: [id number] Loc: [place] [address] Phys: Will Light MD Acct: [id number] Dis Date: Status: ADM IN PHONE #: [phone] Exam Date: 01/28/2019 1800 FAX #: [phone] Reason: CP/FEVER EXAMS: CPT CODE: [id number] CT CHEST W/O CONTRAST 72738 EXAM: CT of the chest without contrast; INFORMATION: Chest pain and fever; TE CHNIQUE AND FINDINGS: CT dose reduction protocol; 5 mm cuts through the ch est. Lung windows show mild patchy groundglass opacities and minimal dependent atelectasis bilaterally. This is associated with mild posterio r pleural thickening. Infiltrates, no edema; no mass lesions. No hil ar or mediastinal adenopathy. The heart is slightly enlarged. I MPRESSION: 1. Mild groundglass opacities probably represent atelectatic changes. 2. Mild cardiomegaly. 3. Otherwise, no evidence of a ctive cardiopulmonary disease. Location code: at 1809 Reported and signed by: Nishant Guardado M.D. CC: Will Light Technologist:Dolores Varela RT(R)(CT) CTDI: DLP: Trnscb Date/Time: 01/28/2019 (1808) Jeffrey Orig Print D/T: S: 01/28/2019 (1812) PAGE 1 Sign ed Report [id number] 16:17:00* Test Item Value Reference Range Interpretation Comments GLUBED (test code = GLUBED) 107 mg/dL 74-106 H Performed by certified foundation drill operator helper at [facility] [id number] 13:59:00* Test Item Value Reference Range Interpretation Comments TROPONIN-I (test code = TROPI) <0.015 ng/mL 0-0.045 N COMMENTS TO DONOR PROCESSOR: COLLECT 3 HOURS AFTER PREVIOUS SAMPLESTREPTOCOCCUS PCR [id number] 13:44:00* Test Item Value Reference Range Interpretation Comments STREPTOCOCCUS DYSGALACTIAE (test code = STREPGC) NEGATIVE FOR G/C N EGATIVE STREPA MOLECULAR (test code = STREPAMOL) NEGATIVE FOR GRP A NEGATIV E [id number] 12:14:00* Test Item Value Reference Range Interpretation Comments GLUBED (test code = GLUBED) 169 mg/dL 74-106 H Performed by certified foundation drill operator helper at [facility] [id number] 11:09:00* Test Item Value Reference Range Interpretation Comments TROPONIN-I (test code = TROPI) <0.015 ng/mL 0-0.045 N COMMENTS TO DONOR PROCESSOR: COLLECT 3 HOURS AFTER PREVIOUS [id number] 08:37:00* Test Item Value Reference Range Interpretation Comments GLUBED (test code = GLUBED) 58 mg/dL 74-106 L Performed by certified foundation drill operator helper at [facility] URINALYSIS [id number] 02:52:00* Test Item Value Reference Range Interpretation Comments UA COLOR (test code = COLU) Light-Yellow YELLOW UA APPEARANCE (test code = APPU) CLEAR CLEAR UA GLUCOSE DIPSTICK (test code = DGLUU) >1000 (4+) mg/dL NEGATIVE UA BILIRUBIN DIPSTICK (test code = BILU) NEGATIVE mg/dL NEGATIVE UA KETONE DIPSTICK (test code = KETU) NEGATIVE mg/dL NEGATIVE UA SPECIFIC GRAVITY (test code = SGU) 1.022 1.001-1.035 UA BLOOD DIPSTICK (test code = FELI) 0.03 mg/dL (Trace) mg/dL NEGATI VE A UA PH DIPSTICK (test code = THERESE) 6.0 5.0-8.0 UA PROTEIN DIPSTICK (test code = PROU) 50 (1+) mg/dL NEGATIVE A UA UROBILINIOGEN DIPSTICK (test code = URO) Normal mg/dL NEGATIVE UA NITRITE DIPSTICK (test code = PABLO) NEGATIVE NEGATIVE UA LEUKOCYTE ESTERASE W REFLEX (test code = LEUUR) NEGATIVE Arnoldo/uL NEGATIVE UA WBC (test code = WBCU) 0-5 per HPF 0-5 UA RBC (test code = RBCU) 0-2 #/HPF 0-5 UA EPITHELIAL CELLS (test code = EPIU) None seen per HPF FEW UA BACTERIA (test code = BACU) NONE SEEN #/HPF NONE Urine Source? Clean CatchLACTIC [id number] 02:04:00* Test Item Value Reference Range Interpretation Comments LACTIC ACID (test code = LACT) 1.9 mmol/L 0.4-1.9 N B-TYPE NATRIURETIC [id number] 00:19:00* Test Item Value Reference Range Interpretation Comments B-TYPE NATRIURETIC PEPTIDE (test code = BNP) 25.77 pgram/mL 0-100 N BASIC METABOLIC [id number] 23:59:00* Test Item Value Reference Range Interpretation Comments SODIUM (test code = NA) 140 mmol/L 136-145 N POTASSIUM (test code = K) 3.4 mmol/L 3.5-5.1 L CHLORIDE (test code = CL) 110.0 mmol/L 98-107 H CARBON DIOXIDE (test code = CO2) 22.0 mmol/L 21-32 N ANION GAP (test code = GAP) 11.4 10-20 N GLUCOSE (test code = GLU) 209 mg/dL 74-106 H BLOOD UREA NITROGEN (test code = BUN) 16 mg/dL 7-18 N GLOMERULAR FILTRATION RATE (test code = GFR) > 60 mL/min >=60 Estimated GFR by using Modified MDRD formula.Chronic kidney disease is defined as either kidney damageor GFR <60 mL/min/1.73 m2 for >3 months. CREATININE (test code = CREAT) 0.90 mg/dL 0.7-1.3 N BUN/CREATININE RATIO (test code = BUN/CREA) 17.4 10-20 N CALCIUM (test code = CA) 7.3 mg/dL 8.5-10.1 L [id number] 23:59:00* Test Item Value Reference Range Interpretation Comments TROPONIN-I (test code = TROPI) <0.015 ng/mL 0-0.045 N BASIC METABOLIC [id number] 23:53:00* Test Item Value Reference Range Interpretation Comments SODIUM (test code = NA) 140 mmol/L 136-145 N POTASSIUM (test code = K) 3.4 mmol/L 3.5-5.1 L CHLORIDE (test code = CL) 110.0 mmol/L 98-107 H CARBON DIOXIDE (test code = CO2) mmol/L 21-32 ANION GAP (test code = GAP) 10-20 GLUCOSE (test code = GLU) mg/dL 74-106 BLOOD UREA NITROGEN (test code = BUN) mg/dL 7-18 GLOMERULAR FILTRATION RATE (test code = GFR) mL/min >=60 CREATININE (test code = CREAT) mg/dL 0.7-1.3 BUN/CREATININE RATIO (test code = BUN/CREA) 10-20 CALCIUM (test code = CA) mg/dL 8.5-10.1 [id number] 23:53:00* Test Item Value Reference Range Interpretation Comments TROPONIN-I (test code = TROPI) ng/mL 0-0.045 CBC W/O [id number] 23:31:00* Test Item Value Reference Range Interpretation Comments WHITE BLOOD CELL (test code = WBC) 12.9 K/mm3 4.5-12.5 H RED BLOOD CELL (test code = RBC) 4.67 mill/mm3 4.0-5.8 N HEMOGLOBIN (test code = HGB) 14.5 gram/dL 13.0-17.5 N HEMATOCRIT (test code = HCT) 41.2 % 42.0-52.0 L MEAN CELL VOLUME (test code = MCV) 88.2 fL 80-98 N MEAN CELL HGB (test code = MCH) 31.0 picogram 27.0-33.0 N MEAN CELL HGB CONCETRATION (test code = MCHC) 35.2 gram/dL 33.0-36. 0 N RED CELL DISTRIBUTION WIDTH (test code = RDW) 13.8 % 11.6-16. 2 N PLATELET COUNT (test code = PLT) 211 K/mm3 150-450 N MEAN PLATELET VOLUME (test code = MPV) 10.5 fL 6.7-11.0 N - XR CHEST 1 [id number] 23:31:00 FAX: Toan Ellis MD Rawson: B St: PRE Name: KERI QUIROZ [facility] : [birth year] Age/S: 68/M [address] [facility] Unit #: [id number] Loc: [place] [address] Phys: Toan Ellis MD Acct: [id number] Dis Date: Status: PRE ER PHONE #: [phone] Exam Date: 01/27/2019 2323 FAX #: [phone] Reason: CHEST PAIN EXAMS: CPT CODE: [id number] XR CHEST 1 V 81721 EXAM: - XR CHEST 1 V HISTORY: Chest pain. COMPARISON: None available time of interpre tation. FINDINGS: Single AP view of the chest is pro vided. Heart size and vascularity are within normal limits. Hypoinflation of the lungs. The lungs are clear of focal consolidation. No effusio n, pneumothorax, or acute osseous abnormality. IM PRESSION: No radiographic evidence of acute cardiopulmonary process. at 2331 Reported and signed by: John Torres MD CC: Toan Ellis MD Technologist: Dick Knight RT(R) Trnscrd Date/Time/By: 019 (9693) : By: [email or web address] Orig Print D/T: S: 01/27/2019 (8724) PAGE 1 Signed Report CBC W/O [id number] 23:29:00* Test Item Value Reference Range Interpretation Comments WHITE BLOOD CELL (test code = WBC) K/mm3 4.5-12.5 RED BLOOD CELL (test code = RBC) mill/mm3 4.0-5.8 HEMOGLOBIN (test code = HGB) 14.5 gram/dL 13.0-17.5 N HEMATOCRIT (test code = HCT) % 42.0-52.0 MEAN CELL VOLUME (test code = MCV) fL 80-98 MEAN CELL HGB (test code = MCH) picogram 27.0-33.0 MEAN CELL HGB CONCETRATION (test code = MCHC) gram/dL 33.0-36. 0 RED CELL DISTRIBUTION WIDTH (test code = RDW) % 11.6-16. 2 PLATELET COUNT (test code = PLT) K/mm3 150-450 MEAN PLATELET VOLUME (test code = MPV) fL 6.7-11.0 specific gravity, [id number] 13:00:40* Test Item Value Reference Range Interpretation Comments specific gravity, urine (test code = 5811-5) 1.015 [facility] HealthpH, urine, [id number] 13:00:40* Test Item Value Reference Range Interpretation Comments pH, urine, semiquantitative (test code = 5803-2) 5.0 [facility], [id number] 13:00:40* Test Item Value Reference Range Interpretation Comments glucose, urine, semiquantitative (test code = 5792-7) 1+ [facility]irubin, [id number] 13:00:40* Test Item Value Reference Range Interpretation Comments bilirubin, urine (test code = 5770-3) negative [facility], urine, by test [id number] 13:00:40* Test Item Value Reference Range Interpretation Comments ketones, urine, by test strip (test code = 5797-6) negative [facility] urine (hemoglobin) by [id number] 13:00:40* Test Item Value Reference Range Interpretation Comments blood in urine (hemoglobin) by dipstick (test code = 4998) negative [facility], urine, semiquantitative (dipstick)2017-07-26 13:00:40* Test Item Value Reference Range Interpretation Comments protein, urine, semiquantitative (dipstick) (test code = 1753-3) 1+ [facility] Islandurobilinogen, urine, semiquantitative (dipstick) 2017-07-26 13:00:40* Test Item Value Reference Range Interpretation Comments urobilinogen, urine, semiquantitative (dipstick) (test code = 5818-0) negative [facility]rite, urine, [id number] 13:00:40* Test Item Value Reference Range Interpretation Comments nitrite, urine, semiquantitative (test code = 5802-4) negative [facility] Islandleukocyte esterase, urine, by [id number] 13:00:40 * Test Item Value Reference Range Interpretation Comments leukocyte esterase, urine, by dipstick (test code = 5799-2) negativ e [facility] Islandappearance, [id number] 13:00:40* Test Item Value Reference Range Interpretation Comments appearance, urine (test code = 5767-9) clear [facility] Healthurine [id number] 13:00:40* Test Item Value Reference Range Interpretation Comments urine color (test code = 5778-6) [facility]
[2019-12-25 11:21] LABS: ALBUMIN 2.6 g/dL (3.5-5.0); ALBUMIN/GLOBULIN RATIO 0.6 (0.8-2.0); ANION GAP 16.2 mmol/L (8-16); CALCIUM 8.7 mg/dL (8.4-10.2); CREATININE, SERUM 1.3 mg/dL (0.72-1.25); POTASSIUM 4.2 mmol/L (3.5-5.1)
[2019-12-25 11:28] LABS: CREATINE KINASE MB 0.7 ng/mL (0-5.0)
--- NOTE | 2019-12-25 11:45 | NUR ---
Per Dr. Bueno son is ok to be at bedside, informed Dr. Bueno that pt is having pain from R Flank to R RLQ to suprapubic region.
[2019-12-25 12:39] LABS: ABG PCO2 26 mmHg (35-45); ABG PH 7.47 (7.35-7.45); ABG PO2 181 mmHg (80-105)
[2019-12-25 12:40] LABS: ABG HCO3 19 mmol/L (22-26); ABG TCO2 20
--- NOTE | 2019-12-25 12:58 | NUR ---
Pt returned from CT scan, with this RN. Pt placed on Venti-mask, during transport @ 40% FiO2, resp:34, Sats:100%. Dr. Bueno notified of Vitals signs after returning to floor.
--- NOTE | 2019-12-25 13:52 | Diagnostic Imaging Report ---
EXAM: CT Chest with intravenous contrast HISTORY: ^dyspnea ^20191225 ^1230 COMPARISON: None TECHNIQUE: CT of the chest WITH intravenous contrast (pulmonary embolism protocol). Coronal and sagittal reformations were obtained. Scan was performed during the pulmonary arterial phase. DOSE REDUCTION: The examination was performed according to the departmental dose-optimization program, which includes automated exposure control, adjustment of the mA and/or kV according to patient size and/or use of iterative reconstruction technique. FINDINGS: Limited exam due to contrast bolus timing/streak artifact. LINES and TUBES: None. PULMONARY ARTERIES: Proximal to the bifurcation of the main pulmonary artery, the main pulmonary artery is 3.0 cm in diameter. No filling defects within the main through proximal segmental pulmonary arteries to suggest pulmonary embolus. LUNGS, AIRWAYS AND PLEURA: Bibasilar atelectasis with small left pleural effusion. HEART AND MEDIASTINUM: The visualized thyroid gland is normal. No significant mediastinal, hilar, or axillary lymphadenopathy. Moderate pericardial effusion. Coronary arterial calcifications. SOFT TISSUES AND BONES: Unremarkable. UPPER ABDOMEN: Unremarkable. IMPRESSION: 1. No pulmonary embolus within the main through proximal segmental pulmonary arteries. 2. Bibasilar atelectasis and small left pleural effusion. 3. Moderate pericardial effusion. Signed by: Donald Han MD on 12/25/2019 1:49 PM
--- NOTE | 2019-12-25 15:57 | NUR ---
Pt currently off bipap and O2 per Dr. Bueno, pt reports burning while urination, Dr. Bueno also notified. Monitoring pts respiratory status for transport to [facility].
--- NOTE | 2019-12-25 16:20 | NUR ---
Nursing report given Ly WING at [facility]. ph:[phone]
[2019-12-25 18:09] VITALS: BP 117/78
== END 2019-12-25 18:22 | disposition other institution (70) ==
LOC: ER 11:17
DX: R07.9 Chest pain, unspecified (principal); I31.3 Pericardial effusion (noninflammatory); R06.00 Dyspnea, unspecified; I10 Essential (primary) hypertension; E11.9 Type 2 diabetes mellitus without complications; E78.5 Hyperlipidemia, unspecified; Z20.828 Contact with and (suspected) exposure to other viral communicable diseases
CPT/HCPCS: 36415; 36600; 71045; 71260; 80053; 82550; 82553; 82805; 83690; 83880; 84484; 85025; 85610; 93005; 93306; 94640; 94660; 99284; U0002

== ENCOUNTER → 2020-01-28 | Outpatient (CLI) | payer MEDICARE | LOC: RESP 14:12 | PROVIDERS: ATTEND Internal Medicine | DX: R06.09 Other forms of dyspnea (principal) | CPT/HCPCS: 94060; 94664; 94727; 94729 ==

== ENCOUNTER → 2020-02-12 | Outpatient (CLI) | payer MEDICARE | LOC: CT 16:12 | PROVIDERS: ATTEND Internal Medicine | DX: R93.89 Abnormal findings on diagnostic imaging of other specified body structures (principal) | CPT/HCPCS: 71250 ==